=== PATIENT | male | born 1960 | race Caucasian/White ===

== ENCOUNTER 2016-11-08 20:49 | Emergency (ER) | payer OTHER ==
[~2016-11-08] VITALS: Ht 172.7 cm; Wt 79.9 kg
[~2016-11-08 20:49] MED LIST: FLUT1DIS3 INH
[2016-11-08] MEDS ORDERED: KETOROLAC 30 MG/1 ML ONE (23:30)
[2016-11-08] MEDS ORDERED: CLINDAMYCIN PMX 600MG/50ML 50 ML IVPB ONE (23:30)
[2016-11-08] MEDS ORDERED: CLINDAMYCIN PMX 600MG/50ML 50 ML ONE (23:30)
[2016-11-08] MEDS ORDERED: SODIUM CHLORIDE FLUSH 10ML SYR IVF ONE (23:30)
[2016-11-08] MEDS ORDERED: KETOROLAC 30 MG/1 ML IVPush ONE (23:30)
[2016-11-08] MEDS ORDERED: VANCOMYCIN 1,600 MG in SODIUM CHLORIDE 0.9% 250 ML IV ONE (23:45)
[2016-11-09] MEDS ORDERED: VANCOMYCIN PER PHARMACY MC ONE
[2016-11-09 00:46] LABS: HEMOGLOBIN 15.5 g/dL (13.7-18.0)
[2016-11-09 00:56] LABS: BLOOD UREA NITROGEN 23 mg/dL (7-18)
[2016-11-09 02:35] VITALS: BP 123/76
== END 2016-11-09 02:35 | disposition home or self-care (01) ==
LOC: ED 23:26
DX: M71.122 Other infective bursitis, left elbow (principal); L03.114 Cellulitis of left upper limb; N28.9 Disorder of kidney and ureter, unspecified
CPT/HCPCS: 36415; 73080; 80048; 82040; 85025; 96365; 96366; 96368; 96375; 99285; J1885; J3370; J7050

== ENCOUNTER 2016-11-10 07:44 | Emergency (ER) | payer OTHER ==
[~2016-11-10] VITALS: Ht 172.7 cm; Wt 78.0 kg
[2016-11-10] MEDS ORDERED: SODIUM CHLORIDE FLUSH 10ML SYR IVF ONE (08:30)
[2016-11-10] MEDS ORDERED: VANCOMYCIN 1,500 MG in SODIUM CHLORIDE 0.9% 250 ML IV ONE (08:30)
[2016-11-10] MEDS ORDERED: VANCOMYCIN PER PHARMACY MC ONE (08:30)
[2016-11-10] MEDS ORDERED: SODIUM CHLORIDE 0.9% 1,000ML IVBOLUS ONE (08:30)
[2016-11-10 08:32] LABS: HEMOGLOBIN 15.6 g/dL (13.7-18.0)
[2016-11-10 08:44] LABS: BLOOD UREA NITROGEN 20 mg/dL (7-18)
[2016-11-10 08:47] LABS: ASPARTATE AMINO TRANSFERASE 13 U/L (15-37)
[2016-11-10 11:12] VITALS: BP 128/87
== END 2016-11-10 11:15 | disposition home or self-care (01) ==
LOC: ED 09:07
DX: M25.522 Pain in left elbow (principal); J45.909 Unspecified asthma, uncomplicated
CPT/HCPCS: 36415; 80053; 83605; 85025; 87040; 96365; 96366; 99285; J3370; J7030; J7050

== ENCOUNTER → 2018-12-08 | Outpatient (CLI) | payer OTHER ==
[~2018-12-08] MED LIST changes: +OMNIPAQUE 350 MG/ML, 100ML BOTTLE ONE
== END | disposition home or self-care (01) ==
LOC: CFH 10:08
PROVIDERS: ATTEND Urology
DX: C61 Malignant neoplasm of prostate (principal)
CPT/HCPCS: 74177; 78306; A9503; Q9967

== ENCOUNTER → 2019-01-02 | Outpatient (CLI) | payer OTHER ==
[~2019-01-02] MED LIST changes: +MULT-717 PO; -OMNIPAQUE 350 MG/ML, 100ML BOTTLE ONE
[2019-01-02 11:23] LABS: BASOPHILS # (AUTO) 0.03 x10^3/uL (0-0.1); BASOPHILS % (AUTO) 1 % (0-1); EOSINOPHILS # (AUTO) 0.11 x10^3/uL (0-0.4); EOSINOPHILS % (AUTO) 2 % (1-7); LYMPHOCYTES # (AUTO) 1.35 x10^3/uL (1-3.4); LYMPHOCYTES % (AUTO) 25 % (22-44); MD NO; MEAN CORPUSCULAR HEMOGLOBIN 31.8 pg (27.5-34.5); MEAN CORPUSCULAR HGB CONC 33.1 g/dL (33.2-36.2); MEAN CORPUSCULAR VOLUME 95.8 fL (81-97); MEAN PLATELET VOLUME 8.1 fL (7.4-10.4); MONOCYTES # (AUTO) 0.49 x10^3/uL (0.2-0.8); MONOCYTES % (AUTO) 9 % (2-9); NEUTROPHILS % (AUTO) 64 % (42-75); PLATELET COUNT 211 x10^3/uL (130-400); RED BLOOD COUNT 5.24 x10^6/uL (4.38-5.82); RED CELL DISTRIBUTION WIDTH 12.1 % (9.4-14.8)
[2019-01-02 13:30] LABS: CHLORIDE 110 mmol/L (98-107)
[2019-01-02 13:40] LABS: ALANINE AMINOTRANSFERASE 25 U/L (12-78); ALBUMIN 3.8 g/dL (3.4-5.0); ALKALINE PHOSPHATASE 61 U/L (45-117); ANION GAP 8 mmol/L (5-15); BILIRUBIN,TOTAL 0.8 mg/dL (0.2-1.0); CALCIUM 8.8 mg/dL (8.5-10.1); CREATININE 0.97 mg/dL (0.7-1.3)
== END | disposition home or self-care (01) ==
LOC: STAR 10:30
PROVIDERS: ATTEND Urology
DX: Z01.818 Encounter for other preprocedural examination (principal); C61 Malignant neoplasm of prostate
CPT/HCPCS: 36415; 80053; 85025; 93005

== ENCOUNTER 2019-01-10 09:56 | Inpatient (IN) | payer OTHER ==
[2019-01-02 10:55] VITALS: BP 143/88
[~2019-01-10] VITALS: Ht 170.2 cm; Wt 64.5 kg
[2019-01-10] MEDS ORDERED: LACTATED RINGERS 1,000 ML IV SCH (10:24)
[2019-01-10] MEDS ORDERED: THROMBIN 5,000 UNIT VIAL TP ONE (10:24)
[2019-01-10] MEDS ORDERED: BUPIVACAINE/PF 0.25% ONE (10:24)
[2019-01-10] MEDS ORDERED: OPIUM/BELLADONNA SUPP.RECT 16.2-60 MG ONE (10:24)
[2019-01-10] MEDS ORDERED: EPINEPHRINE 1 MG/ML, 1ML ONE (10:25)
[2019-01-10] MEDS ORDERED: ACETAMINOPHEN 500 MG TABLET PO ONE (10:30)
[2019-01-10] MEDS ORDERED: GABAPENTIN 300 MG CAPSULE PO ONE (10:30)
[2019-01-10] MEDS ORDERED: MIDAZOLAM 1 MG/ML, 2ML ONE (11:09)
[2019-01-10] MEDS ORDERED: FENTANYL PF 250 MCG/5ML ONE ×3 (11:09→14:21)
[2019-01-10] MEDS ORDERED: GLYCOPYRROLATE 0.2MG/1ML, 5ML ONE (11:11)
[2019-01-10] MEDS ORDERED: NEOSTIGMINE 1 MG/ML, 10ML ONE (11:11)
[2019-01-10] MEDS ORDERED: CEFAZOLIN 1,000 MG ONE ×3 (11:11→14:22)
[2019-01-10] MEDS ORDERED: PROPOFOL 10 MG/ML, 20ML ONE (11:11)
[2019-01-10] MEDS ORDERED: ROCURONIUM 10MG/ML,5ML ONE (11:11)
[2019-01-10] MEDS ORDERED: PROMETHAZINE 12.5 MG SUPP PR PRN (12:30)
[2019-01-10] MEDS ORDERED: hydrALAzine 20 MG/ML, 1ML IV PRN (12:30)
[2019-01-10] MEDS ORDERED: PROMETHAZINE 25 MG/ML, 1ML IM PRN ×2 (12:30)
[2019-01-10] MEDS ORDERED: MEPERIDINE/PF 25MG/0.5ML IVPush PRN (12:30)
[2019-01-10] MEDS ORDERED: LABETALOL 5MG/ML, 20ML IV PRN (12:30)
[2019-01-10] MEDS ORDERED: FENTANYL PF 100 MCG/2ML IV PRN (12:30)
[2019-01-10] MEDS ORDERED: HYDROmorphone 2 MG/ML, 1ML IVPush PRN (12:30)
[2019-01-10] MEDS ORDERED: OXYcodone 5 MG/5 ML ORAL.SOL UDC PO PRN (12:30)
[2019-01-10] MEDS ORDERED: ONDANSETRON 2MG/ML, 2ML IV PRN (12:30)
[2019-01-10] MEDS ORDERED: PROMETHAZINE 25 MG/ML, 1ML IV PRN (12:30)
[2019-01-10] MEDS ORDERED: ONDANSETRON ODT 8 MG PO PRN (12:30)
[2019-01-10] MEDS ORDERED: MORPHINE SULFATE 4 MG/ML, 1ML IVPush PRN (12:30)
[2019-01-10] MEDS ORDERED: PROMETHAZINE 25 MG SUPP PR PRN (12:30)
[2019-01-10] MEDS ORDERED: OXYcodone 5 MG/5 ML ORAL.SOL UDC ONE (17:14)
[2019-01-10] MEDS ORDERED: FENTANYL PF 100 MCG/2ML ONE (17:18)
[2019-01-10] MEDS ORDERED: PROMETHAZINE 25 MG/ML, 1ML ONE (17:20)
[2019-01-10] MEDS ORDERED: MEPERIDINE/PF 25MG/ML,1ML ONE (17:34)
[2019-01-10] MEDS ORDERED: OPIUM/BELLADONNA SUPP.RECT 16.2-60 MG PR PRN (19:30)
[2019-01-10 19:54] VITALS: BP 141/97
[2019-01-10] MEDS ORDERED: OXYcodone IR 5MG TABLET PO PRN (20:00)
[2019-01-10] MEDS ORDERED: ACETAMINOPHEN 500 MG TABLET PO SCH (20:00)
[2019-01-10] MEDS ORDERED: MORPHINE SULFATE 4 MG/ML, 1ML IV PRN (20:00)
[2019-01-10] MEDS: POTASSIUM CHLORIDE 20 MEQ in SODIUM CHLORIDE 0.45% 1,000 ML IV SCH (20:59)
[2019-01-10] MEDS: ACETAMINOPHEN 500 MG TABLET PO SCH (20:59)
[2019-01-11 00:14] VITALS: BP 140/91
[2019-01-11] MEDS: ACETAMINOPHEN 500 MG TABLET PO SCH ×3 (03:00→15:04)
[2019-01-11 04:20] VITALS: BP 151/99
[2019-01-11] MEDS: POTASSIUM CHLORIDE 20 MEQ in SODIUM CHLORIDE 0.45% 1,000 ML IV SCH ×2 (04:30→12:59)
[2019-01-11 05:39] LABS: ANION GAP 6 mmol/L (5-15); CALCIUM 8.2 mg/dL (8.5-10.1); CHLORIDE 110 mmol/L (98-107)
[2019-01-11 05:41] LABS: CREATININE 0.91 mg/dL (0.7-1.3)
[2019-01-11] MEDS ORDERED: ENOXAPARIN 40 MG/0.4 ML SQ SCH (08:00)
[2019-01-11 08:04] VITALS: BP 145/94
[2019-01-11] MEDS: OXYcodone IR 5MG TABLET PO PRN ×2 (10:06→15:04)
[2019-01-11] MEDS ORDERED: OXYC5TAB2 PO (14:42)
[2019-01-11 15:35] VITALS: BP 145/92
== END 2019-01-11 15:50 | disposition home or self-care (01) | DRG 708 ==
LOC: OR 09:56 → 4NOR 18:40 → OUT 18:57 → 4NOR 18:57 → DCLOUNGE 01-11 15:46
PROVIDERS: ADMIT Urology; ATTEND Urology
PROC: 0VT34ZZ Resection of Bilateral Seminal Vesicles, Percutaneous Endoscopic Approach (ICD-10-PCS; 2019-01-10)
PROC: 07BC4ZZ Excision of Pelvis Lymphatic, Percutaneous Endoscopic Approach (ICD-10-PCS; 2019-01-10)
PROC: 0TQC4ZZ Repair Bladder Neck, Percutaneous Endoscopic Approach (ICD-10-PCS; 2019-01-10)
PROC: 0VTQ4ZZ Resection of Bilateral Vas Deferens, Percutaneous Endoscopic Approach (ICD-10-PCS; 2019-01-10)
PROC: 8E0W4CZ Robotic Assisted Procedure of Trunk Region, Percutaneous Endoscopic Approach (ICD-10-PCS; 2019-01-10)
PROC: 0VT04ZZ Resection of Prostate, Percutaneous Endoscopic Approach (ICD-10-PCS; principal; 2019-01-10 12:00)
DX: C61 Malignant neoplasm of prostate (principal); K66.0 Peritoneal adhesions (postprocedural) (postinfection); N40.0 Benign prostatic hyperplasia without lower urinary tract symptoms
CPT/HCPCS: 36415; 80048; 85014; 85018; 86850; 86900; 88305; 88309; C1729; G0378; J0171; J0690; J1650; J2175; J2250; J2550; J2704; J2710; J3010; J3480; J3490; C1760; J7120

== ENCOUNTER → 2020-06-24 | Outpatient (CLI) | payer BC, OTHER ==
[~2020-06-24] MED LIST changes: +OXYC5TAB2 PO
== END | disposition home or self-care (01) ==
LOC: RAD 09:15
PROVIDERS: ATTEND Urology
DX: C61 Malignant neoplasm of prostate (principal)
CPT/HCPCS: 78306; A9503